=== PATIENT | male | born 1995 | race Caucasian/White ===

== ENCOUNTER 2018-01-12 20:21 | Emergency (ER) | payer MEDICAID ==
[2018-01-12] MEDS ORDERED: NAPROXEN 250 MG TABLET PO ONE (20:31)
--- NOTE | 2018-01-12 20:35 | Emergency Department Record ---
History of Present Illness - General Chief Complaint: Neck Injury/Pain Stated Complaint: SHOULDER/NECK PAIN Time Seen by Provider: 01/12/18 20:30 Source: Patient, Family Mode of Arrival: Ambulatory Limitations: No limitations - History of Present Illness Initial Comments: 22 yo male presents with a pain in the right neck, shoulder, upper chest for 4 days. Mild cough. No specific injury. Three days ago he did have a fever. It hurts to cough, move the neck, turn the head. NO radiation down the arm. No arm swelling. No shortness of breath. He has a history of asthma but no recent symptoms. He is a smoker. No headaches. MD Complaint: Neck pain, Upper back pain -: Days(s) (4) Place: Home Radiation: Chest, Right shoulder, Right upper extremity, Upper back Severity: Mild Quality: Aching Consistency: Constant Improves With: Immobilization Worsens With: Movement of neck, Other (cough, breath) Context: Other (No injury) Associated Symptoms: Fever (3 days ago fever) Treatments Prior to Arrival: Acetaminophen - Related Data Previous Rx's Medication Instructions Recorded Azithromycin [Zithromax] 250 mg PO DAILY #6 tab 01/12/18 Naproxen [Naprosyn] 500 mg PO Q12H #20 tab. 01/12/18 Allergies Allergy/AdvReac Type Severity Reaction Status Date / Time No Known Drug Allergies Allergy Verified 01/12/18 20:30 Review of Systems Constitutional: Denies: Chills, Fever, Malaise, Weakness Eyes: Denies: Eye discharge, Eye pain ENT: Denies: Congestion, Ear pain, Throat pain Respiratory: Reports: Cough. Denies: Dyspnea, Hemoptysis, Stridor, Wheezes Cardiovascular: Reports: Chest pain. Denies: Arrhythmia, Edema, Palpitations, Syncope Endocrine: Denies: Fatigue, Polydipsia, Polyuria Gastrointestinal: Denies: Abdominal pain, Diarrhea, Nausea, Vomiting Genitourinary: Denies: Dysuria, Frequency, Hematuria Musculoskeletal: Reports: Arthralgia, Myalgia, Neck pain. Denies: Back pain Skin: Denies: Bruising, Change in color, Rash Neurological: Denies: Headache, Numbness, Weakness Psychiatric: Denies: Anxiety Hematological/Lymphatic: Denies: Blood Clots, Easy bleeding, Easy bruising Physical Exam - General General Appearance: Alert, Oriented x3, Cooperative, No acute distress Limitations: No limitations - Head Head exam: Atraumatic, Normocephalic, Normal inspection - Eye Eye exam: Normal appearance, PERRL, EOMI. negative: Conjunctival injection, Scleral icterus - ENT ENT exam: Normal exam, Mucous membranes moist Ear exam: Normal external inspection Nasal Exam: Normal inspection Mouth exam: Normal external inspection - Neck Neck exam: Normal inspection, Full ROM, Tenderness, Other (Pain with flexion and turning right and left but no limitation). negative: Lymphadenopathy, Meningismus, Thyromegaly - Respiratory Respiratory exam: Normal lung sounds bilaterally. negative: Accessory muscle use, Chest wall tenderness, Decreased breath sounds, Prolonged expiratory, Respiratory distress, Rhonchi, Stridor, Wheezes - Cardiovascular Cardiovascular Exam: Regular rate, Normal rhythm, Normal heart sounds Peripheral Pulses: 2+: Radial (R), Radial (L) - GI/Abdominal GI/Abdominal exam: Soft. negative: Tenderness - Rectal Rectal exam: Deferred - exam: Deferred - Extremities Extremities exam: Normal inspection. negative: Pedal edema, Tenderness - Back Back exam: Reports: Full ROM, Paraspinal tenderness (upper right back to neck). Denies: CVA tenderness (R), CVA tenderness (L) - Neurological Neurological exam: Alert, Oriented X3 - Psychiatric Psychiatric exam: Normal affect, Normal mood - Skin Skin exam: Dry, Intact, Normal color, Warm Course Vital Signs 01/12/18 20:27 Temperature 99.4 F Pulse Rate [ 92 H Pulse Ox Probe] Respiratory 20 Rate Blood Pressure 120/68 [Left Arm] Pulse Ox 97 - Reevaluation(s) Reevaluation #1: 01/12/18 21:37 CXR finding suggest bronchitis no pneumonia Given the recent fever with some cough this may be more pleuritic in nature Naprosyn and Zithromax ordered 01/12/18 23:08 Disposition Disposition: Discharge Clinical Impression: Neck pain, Pleuritic chest pain Disposition: Home, Self-Care Condition: (1) Good Instructions: Cervical Sprain (ED) Additional Instructions: Return if worse, fever, cough, short of breath or new concerns Take the prescriptions as directed Prescriptions: Azithromycin [Zithromax] 250 mg PO DAILY #6 tab Naproxen [Naprosyn] 500 mg PO Q12H #20 tab.dr Forms: Patient Portal Access Time of Disposition: 21:38 Quality - Quality Measures Quality Measures: N/A - Blood Pressure Screening Does Patient Have Any of the Following: No Blood Pressure Classification: Normal BP Reading Systolic Measurement: 117 Diastolic Measurement: 67 Screening for High Blood Pressure: < Normal BP, F/U Not Required > [G8783]
--- NOTE | 2018-01-14 14:14 | RADIOLOGY REPORT ---
EXAM: CHEST, TWO VIEWS HISTORY: COUGH AND FEVER. TECHNIQUE: Two views of the chest were obtained. Comparison: None. FINDINGS: Two views of the chest show normal lung volumes. No infiltrate. There is mild peribronchial thickening. No pleural effusion. The cardiomediastinal silhouette is within normal limits. The bony structures are unremarkable. IMPRESSION: NO EVIDENCE OF PNEUMONIA. THERE ARE FINDINGS SUGGESTING BRONCHITIS. JOB NUMBER: [id number] [facility]
== END 2018-01-12 21:49 | disposition home or self-care (01) ==
LOC: ER 20:21
DX: J20.9 Acute bronchitis, unspecified (principal); R07.89 Other chest pain; M54.2 Cervicalgia; F17.210 Nicotine dependence, cigarettes, uncomplicated
CPT/HCPCS: 71046; 99283